=== PATIENT | male | born 1935 | race African-American/Black ===

== ENCOUNTER 2019-01-21 17:08 | Inpatient (IN) | payer MEDICARE ==
[~2019-01-21] VITALS: Ht 185.4 cm; Wt 89.1 kg
[2019-01-21 17:48] LABS: BASOPHILS % 1.1 % (0.0-2.0); EOSINOPHILS % 3.7 % (0.0-5.0); HEMATOCRIT. 40.4 % (42.0-52.0); HEMOGLOBIN. 13.4 g/dL (14.0-18.0); LYMPHOCYTES % 35.7 % (20.0-50.0); MEAN CORPUSCULAR HEMOGLOBIN 31.5 pg (28.0-32.0); MONOCYTES % 9.8 % (2.0-8.0); NEUTROPHILS % 49.7 % (40.0-76.0); PLATELET 220 x1000/uL (130-400); RED BLOOD CELL COUNT 4.25 mill/uL (4.7-6.1); RED CELL DISTRIBUTION WIDTH 13.8 % (11.6-14.6)
[2019-01-21 17:52] LABS: CHLORIDE 108 mEq/L (98-107)
[2019-01-21] MEDS ORDERED: AMLODIPINE 2.5MG TABLET PO ONE (19:00)
[2019-01-21 20:19] LABS: CLARITY URINE CLOUDY (CLEAR); COLOR URINE YELLOW (YELLOW); KETONES URINE NEGATIVE (NEGATIVE); LEUKOCYTE ESTERASE URINE 3+ (NEGATIVE); NITRITE URINE POSITIVE (NEGATIVE); OCCULT BLOOD URINE TRACE (NEGATIVE); PH URINE 7.5 (4.5-8.0); PROTEIN URINE 1+ (NEGATIVE); SPECIFIC GRAVITY URINE 1.023 (1.005-1.030)
[2019-01-21 21:09] VITALS: BP 191/96
[2019-01-21 21:15] VITALS: BP 191/96
[2019-01-21] MEDS ORDERED: CLONIDINE 0.1MG TABLET PO PRN (22:45)
[2019-01-21] MEDS ORDERED: ACETAMINOPHEN 650MG/20.3ML UDC PO PRN (22:45)
[2019-01-21] MEDS: BENAZEPRIL 10MG TABLET PO SCH (23:57)
[2019-01-22] VITALS: BP 171/80
[2019-01-22 04:00] VITALS: BP 151/79
[2019-01-22 08:30] VITALS: BP 192/93
[2019-01-22] MEDS ORDERED: ENOXAPARIN 40MG/0.4ML SYR SUBCUT SCH (09:00)
[2019-01-22] MEDS: BENAZEPRIL 10MG TABLET PO SCH (10:15)
[2019-01-22 10:38] LABS: T4 FREE 0.98 ng/dL (0.76-1.46)
[2019-01-22 12:06] VITALS: BP 162/75
[2019-01-22 15:23] VITALS: BP 170/87
[2019-01-22 16:18] LABS: CREATINE KINASE MB FRACTION 1.6 ng/mL (0.5-3.6)
[2019-01-22 19:47] LABS: BASOPHILS % 0.6 % (0.0-2.0); EOSINOPHILS % 2.3 % (0.0-5.0); HEMATOCRIT. 41.7 % (42.0-52.0); LYMPHOCYTES % 21.2 % (20.0-50.0); MEAN CORPUSCULAR HEMOGLOBIN 31.8 pg (28.0-32.0); MEAN PLATELET VOLUME 8.5 fl (7.4-10.4); MONOCYTES % 8.1 % (2.0-8.0); NEUTROPHILS % 67.8 % (40.0-76.0); PLATELET 219 x1000/uL (130-400); RED BLOOD CELL COUNT 4.38 mill/uL (4.7-6.1); RED CELL DISTRIBUTION WIDTH 13.5 % (11.6-14.6)
[2019-01-22 20:00] VITALS: BP_SYST 116; BP_SYST 156; BP_DIAS 69; BP_DIAS 83
[2019-01-22] MEDS ORDERED: CEFTRIAXONE 1 G PREMIX 50 ML IV SCH (20:00)
[2019-01-22 20:05] LABS: CHLORIDE 103 mEq/L (98-107)
[2019-01-22] MEDS: AMLODIPINE 10MG TABLET PO SCH (21:09)
[2019-01-22] MEDS: HYDRALAZINE HCL 50MG TABLET PO SCH (21:18)
[2019-01-23] VITALS (7 sets, daily range): BP systolic 133–166; BP diastolic 66–85
[2019-01-23 00:09] LABS: CREATINE KINASE MB FRACTION 1.8 ng/mL (0.5-3.6)
[2019-01-23 04:03] LABS: CLARITY URINE CLOUDY (CLEAR); COLOR URINE YELLOW (YELLOW); KETONES URINE NEGATIVE (NEGATIVE); LEUKOCYTE ESTERASE URINE 3+ (NEGATIVE); NITRITE URINE POSITIVE (NEGATIVE); OCCULT BLOOD URINE 3+ (NEGATIVE); PH URINE 7.5 (4.5-8.0); PROTEIN URINE 1+ (NEGATIVE); SPECIFIC GRAVITY URINE 1.015 (1.005-1.030)
[2019-01-23] MEDS ORDERED: AMLO10TA80 PO (06:33)
[2019-01-23] MEDS ORDERED: HYDR-4135 PO (06:33)
[2019-01-23] MEDS ORDERED: LEVO500T2 MT (06:34)
[2019-01-23] MEDS ORDERED: ATOR10TA MT (06:37)
[2019-01-23] MEDS: HYDRALAZINE HCL 50MG TABLET PO SCH ×2 (06:56→13:41)
[2019-01-23 08:06] LABS: CREATINE KINASE MB FRACTION 1.6 ng/mL (0.5-3.6)
[2019-01-23] MEDS: AMLODIPINE 10MG TABLET PO SCH (08:57)
[2019-01-23] MEDS: BENAZEPRIL 10MG TABLET PO SCH (08:58)
[2019-01-23 11:29] LABS: BASOPHILS % 0.8 % (0.0-2.0); EOSINOPHILS % 1.9 % (0.0-5.0); HEMATOCRIT. 42.6 % (42.0-52.0); HEMOGLOBIN. 14.2 g/dL (14.0-18.0); LYMPHOCYTES % 17.8 % (20.0-50.0); MEAN CORPUSCULAR HEMOGLOBIN 31.8 pg (28.0-32.0); MEAN CORPUSCULAR VOLUME 95.3 fL (80.0-94.0); MEAN PLATELET VOLUME 8.1 fl (7.4-10.4); MONOCYTES % 7.3 % (2.0-8.0); NEUTROPHILS % 72.2 % (40.0-76.0); PLATELET 204 x1000/uL (130-400); RED BLOOD CELL COUNT 4.47 mill/uL (4.7-6.1); RED CELL DISTRIBUTION WIDTH 13.7 % (11.6-14.6)
[2019-01-23 11:34] LABS: PROTHROMBIN TIME 10.2 sec (9.6-11.0)
[2019-01-23 12:14] LABS: CHLORIDE 102 mEq/L (98-107)
[2019-01-23] MEDS ORDERED: ATORVASTATIN CALCIUM 10MG TABLET PO SCH (21:00)
== END 2019-01-23 18:15 | disposition home or self-care (01) | DRG 690 ==
LOC: ER 17:08 → 5WST 19:38 → ENRESERV 19:56
PROVIDERS: ADMIT Family Medicine; ATTEND Family Medicine
DX: N39.0 Urinary tract infection, site not specified (principal); I67.82 Cerebral ischemia; I10 Essential (primary) hypertension; B96.89 Other specified bacterial agents as the cause of diseases classified elsewhere; N21.0 Calculus in bladder; E11.649 Type 2 diabetes mellitus with hypoglycemia without coma; N40.0 Benign prostatic hyperplasia without lower urinary tract symptoms; E78.5 Hyperlipidemia, unspecified; G31.9 Degenerative disease of nervous system, unspecified; Z87.440 Personal history of urinary (tract) infections; Z91.19 Patient's noncompliance with other medical treatment and regimen
CPT/HCPCS: 36415; 71045; 76770; 80061; 81003; 82550; 82553; 83036; 83880; 84439; 84443; 84484; 85379; 87077; 87186; 93005; 93306; 99285; J0696; J1650

== ENCOUNTER 2019-02-27 12:23 | Emergency (ER) | payer MEDICARE ==
[~2019-02-27] VITALS: Ht 185.4 cm; Wt 86.0 kg
[~2019-02-27 12:23] MED LIST: AMLO10TA80 PO; ATOR10TA MT; HYDR-4135 PO; LEVO500T2 MT
[2019-02-27 14:28] VITALS: BP 130/66
== END 2019-02-27 14:30 | disposition home or self-care (01) ==
LOC: ER 12:23
DX: E11.621 Type 2 diabetes mellitus with foot ulcer (principal); L97.529 Non-pressure chronic ulcer of other part of left foot with unspecified severity; L97.519 Non-pressure chronic ulcer of other part of right foot with unspecified severity; L03.116 Cellulitis of left lower limb; L03.115 Cellulitis of right lower limb; I10 Essential (primary) hypertension
CPT/HCPCS: 73630; 82962; 99283

== ENCOUNTER 2020-08-20 12:40 | Inpatient (IN) | payer MEDICARE, MEDICAID ==
[~2020-08-20] VITALS: Ht 185.4 cm; Wt 82.6 kg
[2020-08-20] MEDS ORDERED: SODIUM CHLORIDE 0.9% 1,000 ML IV ONE (13:45)
[2020-08-20] MEDS ORDERED: CLONIDINE 0.2MG TABLET PO ONE (13:45)
[2020-08-20 14:12] LABS: BASOPHILS % 0.6 % (0.0-2.0); HEMATOCRIT. 42.2 % (42.0-52.0); LYMPHOCYTES % 24.1 % (20.0-50.0); MEAN CORPUSCULAR HEMOGLOBIN 30.6 pg (28.0-32.0); MEAN CORPUSCULAR VOLUME 92.2 fL (80.0-94.0); MEAN PLATELET VOLUME 8.5 fl (7.4-10.4); NEUTROPHILS % 67.3 % (40.0-76.0); PLATELET 166 x1000/uL (130-400); RED BLOOD CELL COUNT 4.58 mill/uL (4.7-6.1); RED CELL DISTRIBUTION WIDTH 13.6 % (11.6-14.6)
[2020-08-20 14:18] LABS: CHLORIDE 100 mEq/L (98-107)
[2020-08-20 14:19] LABS: CLARITY URINE CLOUDY (CLEAR); COLOR URINE ORANGE (YELLOW); KETONES URINE 1+ (NEGATIVE); LEUKOCYTE ESTERASE URINE 2+ (NEGATIVE); NITRITE URINE NEGATIVE (NEGATIVE); OCCULT BLOOD URINE 3+ (NEGATIVE); PROTEIN URINE 3+ (NEGATIVE); SPECIFIC GRAVITY URINE 1.033 (1.005-1.030)
[2020-08-20 15:23] LABS: PARTIAL THROMBOPLASTIN TIME 31.6 sec (23.4-31.0); PROTHROMBIN TIME 10.7 sec (9.6-11.0)
[2020-08-20] MEDS ORDERED: CEFTRIAXONE 1 G PREMIX 50 ML IV ONE (18:15)
[2020-08-20] MEDS ORDERED: ASPIRIN 81MG TABLET PO ONE (18:15)
[2020-08-20] MEDS ORDERED: DEXTROSE 50% WATER 50ML SYRINGE IV PRN (19:15)
[2020-08-20] MEDS ORDERED: NA PHOS,M-B/NA PHOS,DI-BA ENEMA 118ML PR PRN (19:15)
[2020-08-20] MEDS ORDERED: ONDANSETRON HCL 4MG/2ML INJ IV PRN (19:15)
[2020-08-20] MEDS ORDERED: DOCUSATE SODIUM 100MG CAPSULE PO PRN (19:15)
[2020-08-20] MEDS ORDERED: LORAZEPAM 0.5MG TABLET PO PRN (19:15)
[2020-08-20] MEDS ORDERED: ACETAMINOPHEN 650MG SUPP PR PRN (19:15)
[2020-08-20] MEDS ORDERED: GUAIFENESIN 200MG/10ML SUGAR FREE UDC PO PRN (19:15)
[2020-08-20] MEDS ORDERED: IPRATROPIUM/ALBUTEROL 0.5-3(2.5)MG/3ML NEB NEB PRN (19:15)
[2020-08-20] MEDS ORDERED: HYDROCODONE/ACETAMINOPHEN 5/325MG TABLET PO PRN (19:15)
[2020-08-20] MEDS ORDERED: MAGNESIUM/ALUMINUM HYDROXIDE/SIMETHICONE 30ML UDC PO PRN (19:15)
[2020-08-20] MEDS ORDERED: CLONIDINE 0.1MG TABLET PO PRN (19:15)
[2020-08-20] MEDS ORDERED: DIPHENHYDRAMINE 50MG/ML VIAL IV PRN (19:15)
[2020-08-20] MEDS: PANTOPRAZOLE SODIUM 40 MG/VIAL IV SCH (19:30)
[2020-08-20] MEDS: SODIUM CHLORIDE 0.9% 1,000 ML IV SCH (19:30)
[2020-08-20] MEDS ORDERED: LEVOFLOXACIN 500MG PREMIX 100 ML IV SCH (19:30)
[2020-08-20] MEDS: INSULIN LISPRO 100 UNITS/ML SUBCUT SCH (21:00)
[2020-08-20] MEDS: BLOOD SUGAR DIAGNOSTIC STRIP TEST SCH (21:28)
[2020-08-21] VITALS (7 sets, daily range): BP systolic 94–155; BP diastolic 48–75
[2020-08-21] LABS: CREATINE KINASE MB FRACTION 2.1 ng/mL (0.5-3.6)
[2020-08-21] MEDS: INSULIN LISPRO 100 UNITS/ML SUBCUT SCH ×4 (06:10→20:19)
[2020-08-21] MEDS: BLOOD SUGAR DIAGNOSTIC STRIP TEST SCH ×4 (06:11→21:00)
[2020-08-21] MEDS: HYDRALAZINE HCL 50MG TABLET PO SCH ×2 (06:11→14:52)
[2020-08-21 06:54] LABS: BASOPHILS % 0.3 % (0.0-2.0); HEMATOCRIT. 37.4 % (42.0-52.0); HEMOGLOBIN. 12.3 g/dL (14.0-18.0); LYMPHOCYTES % 17.6 % (20.0-50.0); MEAN PLATELET VOLUME 9.3 fl (7.4-10.4); MONOCYTES % 6.9 % (2.0-8.0); NEUTROPHILS % 75.2 % (40.0-76.0); PLATELET 157 x1000/uL (130-400); RED BLOOD CELL COUNT 3.98 mill/uL (4.7-6.1)
[2020-08-21 06:56] LABS: CHLORIDE 105 mEq/L (98-107)
[2020-08-21 07:02] LABS: PROSTRATE SPECIFIC AG TOTAL 28.3 ng/mL (0.0-4.0)
[2020-08-21 07:10] LABS: LDL CHOLESTEROL 131 mg/dL (5-100)
[2020-08-21 07:11] LABS: HDL CHOLESTEROL 43 mg/dL (40-59)
[2020-08-21 07:14] LABS: CREATINE KINASE 198 IU/L (39-308)
[2020-08-21 07:15] LABS: T4 FREE 1.32 ng/dL (0.76-1.46)
[2020-08-21 07:18] LABS: TOTAL IRON BINDING CAPACITY 192 ug/dL (250-450)
[2020-08-21] MEDS ORDERED: PNEUMOCOCCAL 23-VAL P-SAC VAC 0.5 ML IM ONE (08:00)
[2020-08-21] MEDS ORDERED: INFLUENZA VACCINE 05/PF 0.5 ML VIAL IM ONE (10:00)
[2020-08-21] MEDS: PANTOPRAZOLE SODIUM 40 MG/VIAL IV SCH ×2 (10:17→20:18)
[2020-08-21] MEDS: SODIUM CHLORIDE 0.9% 1,000 ML IV SCH (10:44)
[2020-08-21] MEDS: ACETAMINOPHEN 325MG TABLET PO PRN (18:56)
[2020-08-21] MEDS: AMLODIPINE 5MG TABLET PO SCH (18:57)
[2020-08-21] MEDS: TAMSULOSIN HCL 0.4MG SR CAPSULE PO SCH (18:57)
[2020-08-21] MEDS: METFORMIN HCL 500MG TABLET PO SCH (18:57)
[2020-08-21] MEDS: LEVOFLOXACIN 500MG PREMIX 100 ML IV SCH (20:18)
[2020-08-21] MEDS: HYDRALAZINE HCL 25MG TABLET PO SCH (21:55)
[2020-08-22] VITALS: BP 151/60
[2020-08-22 04:00] VITALS: BP 168/72
[2020-08-22] MEDS: ACETAMINOPHEN 325MG TABLET PO PRN ×2 (05:23→20:28)
[2020-08-22] MEDS: HYDRALAZINE HCL 25MG TABLET PO SCH ×2 (05:23→13:03)
[2020-08-22] MEDS: BLOOD SUGAR DIAGNOSTIC STRIP TEST SCH ×4 (05:51→21:00)
[2020-08-22 08:00] VITALS: BP 126/55
[2020-08-22] MEDS: PANTOPRAZOLE SODIUM 40 MG/VIAL IV SCH ×2 (08:01→20:28)
[2020-08-22] MEDS: METFORMIN HCL 500MG TABLET PO SCH ×2 (08:01→18:30)
[2020-08-22] MEDS: AMLODIPINE 5MG TABLET PO SCH (08:01)
[2020-08-22] MEDS: TAMSULOSIN HCL 0.4MG SR CAPSULE PO SCH (08:01)
[2020-08-22] MEDS: INSULIN LISPRO 100 UNITS/ML SUBCUT SCH ×3 (08:02→18:31)
[2020-08-22] MEDS: SODIUM CHLORIDE 0.9% 1,000 ML IV SCH (08:38)
[2020-08-22 09:10] LABS: BASOPHILS % 0.3 % (0.0-2.0); HEMATOCRIT. 35.7 % (42.0-52.0); HEMOGLOBIN. 11.9 g/dL (14.0-18.0); LYMPHOCYTES % 14.1 % (20.0-50.0); MEAN CORPUSCULAR HEMOGLOBIN 31.1 pg (28.0-32.0); MEAN CORPUSCULAR VOLUME 93.2 fL (80.0-94.0); MEAN PLATELET VOLUME 9.2 fl (7.4-10.4); NEUTROPHILS % 79.6 % (40.0-76.0); PLATELET 173 x1000/uL (130-400); RED BLOOD CELL COUNT 3.83 mill/uL (4.7-6.1); RED CELL DISTRIBUTION WIDTH 12.8 % (11.6-14.6)
[2020-08-22 09:14] LABS: CHLORIDE 103 mEq/L (98-107)
[2020-08-22 09:33] LABS: FOLIC ACID (FOLATE) SERUM 19.5 ng/mL (>5.38)
[2020-08-22] MEDS ORDERED: POTASSIUM CHLORIDE 20MEQ TABLET SR PO SCH (10:45)
[2020-08-22 12:00] VITALS: BP 144/68
[2020-08-22] MEDS ORDERED: SODIUM CHLORIDE 0.9% 1,000 ML IV SCH (13:00)
[2020-08-22 16:00] VITALS: BP 167/64
[2020-08-22] MEDS: LEVOFLOXACIN 500MG PREMIX 100 ML IV SCH (18:30)
[2020-08-22 20:00] VITALS: BP 127/52
[2020-08-23] VITALS: BP 124/55
[2020-08-23] MEDS: INSULIN LISPRO 100 UNITS/ML SUBCUT SCH ×5 (00:04→21:04)
[2020-08-23] MEDS: SODIUM CHLORIDE 0.9% 1,000 ML IV SCH (00:04)
[2020-08-23] MEDS: HYDRALAZINE HCL 25MG TABLET PO SCH ×4 (00:05→21:03)
[2020-08-23 04:00] VITALS: BP 123/64
[2020-08-23] MEDS: ACETAMINOPHEN 325MG TABLET PO PRN (05:43)
[2020-08-23 05:44] LABS: CHLORIDE 106 mEq/L (98-107)
[2020-08-23 06:04] LABS: BASOPHILS % 0.3 % (0.0-2.0); HEMOGLOBIN. 11.8 g/dL (14.0-18.0); LYMPHOCYTES % 15.5 % (20.0-50.0); MEAN CORPUSCULAR HEMOGLOBIN 30.9 pg (28.0-32.0); MEAN PLATELET VOLUME 9.5 fl (7.4-10.4); MONOCYTES % 7.6 % (2.0-8.0); NEUTROPHILS % 76.6 % (40.0-76.0); PLATELET 185 x1000/uL (130-400); RED BLOOD CELL COUNT 3.83 mill/uL (4.7-6.1); RED CELL DISTRIBUTION WIDTH 12.7 % (11.6-14.6)
[2020-08-23] MEDS: BLOOD SUGAR DIAGNOSTIC STRIP TEST SCH ×4 (07:40→21:04)
[2020-08-23 08:00] VITALS: BP 109/58
[2020-08-23] MEDS: AMLODIPINE 5MG TABLET PO SCH (09:00)
[2020-08-23] MEDS: PANTOPRAZOLE SODIUM 40 MG/VIAL IV SCH ×2 (09:29→21:03)
[2020-08-23] MEDS: METFORMIN HCL 500MG TABLET PO SCH ×2 (09:30→17:41)
[2020-08-23] MEDS: TAMSULOSIN HCL 0.4MG SR CAPSULE PO SCH (09:30)
[2020-08-23] MEDS: DEXAMETHASONE 10 MG/ML VIAL IV SCH (11:36)
[2020-08-23] MEDS: ASPIRIN 81MG TABLET PO SCH (11:36)
[2020-08-23 12:11] VITALS: BP 132/63
[2020-08-23 13:27] LABS: BG CARBOXYHEMOGLOBIN 1.2 % (0.5-1.5); BG DEOXYHEMOGLOBIN 11.8 % (0.0-5.0); BG FRACTION INSPIRED OXYGEN 21; BG HCO3 ACT 23.8 mmol/L (22.0-26.0); BG METHEMOGLOBIN 0.1 % (0.0-1.5); BG OXYHEMOGLOBIN 86.9 % (94.0-97.0); BG PCO2 35.7 mmHg (35.0-45.0); BG PH 7.442 (7.350-7.450); BG PO2 51.8 mmHg (75.0-100.0); BG SAMPLE SITE RIGHT BRACHIAL; BG TOTAL HEMOGLOBIN 11.8 g/dL (12.0-18.0); BG VENT MODE ROOM AIR
[2020-08-23] MEDS ORDERED: FUROSEMIDE 40MG/4ML VIAL IVP NR (15:00)
[2020-08-23 16:00] VITALS: BP 126/72
[2020-08-23] MEDS: LEVOFLOXACIN 500MG PREMIX 100 ML IV SCH (18:30)
[2020-08-23] MEDS: ALBUTEROL 6.7GM HFA INHALER ORI SCH (18:38)
[2020-08-23 20:00] VITALS: BP 120/60
[2020-08-24] VITALS: BP 128/71
[2020-08-24 04:00] VITALS: BP 141/65
[2020-08-24] MEDS: HYDRALAZINE HCL 25MG TABLET PO SCH ×3 (06:16→22:40)
[2020-08-24] MEDS: ALBUTEROL 6.7GM HFA INHALER ORI SCH ×5 (06:16→23:02)
[2020-08-24 06:45] LABS: BASOPHILS % 0.2 % (0.0-2.0); HEMATOCRIT. 35.1 % (42.0-52.0); HEMOGLOBIN. 11.8 g/dL (14.0-18.0); LYMPHOCYTES % 11.3 % (20.0-50.0); MEAN CORPUSCULAR HEMOGLOBIN 31.4 pg (28.0-32.0); MEAN CORPUSCULAR VOLUME 93.5 fL (80.0-94.0); MEAN PLATELET VOLUME 8.9 fl (7.4-10.4); MONOCYTES % 7.5 % (2.0-8.0); PLATELET 195 x1000/uL (130-400); RED BLOOD CELL COUNT 3.76 mill/uL (4.7-6.1); RED CELL DISTRIBUTION WIDTH 12.8 % (11.6-14.6)
[2020-08-24 07:07] LABS: CHLORIDE 102 mEq/L (98-107)
[2020-08-24] MEDS: BLOOD SUGAR DIAGNOSTIC STRIP TEST SCH ×4 (07:33→20:29)
[2020-08-24] MEDS: INSULIN LISPRO 100 UNITS/ML SUBCUT SCH ×4 (07:54→20:29)
[2020-08-24] MEDS: METFORMIN HCL 500MG TABLET PO SCH ×2 (07:54→17:33)
[2020-08-24 08:00] VITALS: BP 130/93
[2020-08-24] MEDS: AMLODIPINE 5MG TABLET PO SCH (08:00)
[2020-08-24] MEDS: DEXAMETHASONE 10 MG/ML VIAL IV SCH (08:00)
[2020-08-24] MEDS: PANTOPRAZOLE SODIUM 40 MG/VIAL IV SCH ×2 (08:00→20:28)
[2020-08-24] MEDS: ASPIRIN 81MG TABLET PO SCH (08:00)
[2020-08-24] MEDS: TAMSULOSIN HCL 0.4MG SR CAPSULE PO SCH (08:00)
[2020-08-24 12:00] VITALS: BP 125/86
[2020-08-24] MEDS ORDERED: INSULIN GLARGINE UD 100 UNITS/ML SYR SUBCUT NR (14:30)
[2020-08-24 16:00] VITALS: BP 100/62
[2020-08-24 20:00] VITALS: BP 120/63
[2020-08-24] MEDS: LEVOFLOXACIN 500MG PREMIX 100 ML IV SCH (20:28)
[2020-08-24] MEDS: INSULIN GLARGINE UD 100 UNITS/ML SYR SUBCUT SCH (22:42)
[2020-08-25] VITALS: BP 120/61
[2020-08-25 04:00] VITALS: BP 148/81
[2020-08-25] MEDS: ALBUTEROL 6.7GM HFA INHALER ORI SCH ×4 (05:41→23:18)
[2020-08-25] MEDS: HYDRALAZINE HCL 25MG TABLET PO SCH ×3 (05:41→20:25)
[2020-08-25] MEDS: BLOOD SUGAR DIAGNOSTIC STRIP TEST SCH ×4 (06:58→21:00)
[2020-08-25] MEDS: METFORMIN HCL 500MG TABLET PO SCH ×2 (07:42→17:32)
[2020-08-25] MEDS: INSULIN LISPRO 100 UNITS/ML SUBCUT SCH ×4 (07:42→22:15)
[2020-08-25 08:00] VITALS: BP 128/72
[2020-08-25] MEDS: PANTOPRAZOLE SODIUM 40 MG/VIAL IV SCH ×2 (09:36→20:25)
[2020-08-25] MEDS: TAMSULOSIN HCL 0.4MG SR CAPSULE PO SCH (09:37)
[2020-08-25] MEDS: AMLODIPINE 5MG TABLET PO SCH (09:37)
[2020-08-25] MEDS: ASPIRIN 81MG TABLET PO SCH (09:37)
[2020-08-25] MEDS: DEXAMETHASONE 10 MG/ML VIAL IV SCH (09:37)
[2020-08-25] MEDS: INSULIN GLARGINE UD 100 UNITS/ML SYR SUBCUT SCH ×2 (09:38→22:15)
[2020-08-25 12:00] VITALS: BP 115/59
[2020-08-25 16:00] VITALS: BP 109/58
[2020-08-25 20:00] VITALS: BP 146/71
[2020-08-26] VITALS (7 sets, daily range): BP systolic 103–165; BP diastolic 55–81
[2020-08-26] MEDS: ALBUTEROL 6.7GM HFA INHALER ORI SCH ×3 (06:00→17:11)
[2020-08-26] MEDS: HYDRALAZINE HCL 25MG TABLET PO SCH ×2 (06:54→12:51)
[2020-08-26] MEDS: BLOOD SUGAR DIAGNOSTIC STRIP TEST SCH ×3 (07:05→17:10)
[2020-08-26] MEDS: TAMSULOSIN HCL 0.4MG SR CAPSULE PO SCH (08:43)
[2020-08-26] MEDS: AMLODIPINE 5MG TABLET PO SCH (08:43)
[2020-08-26] MEDS: DEXAMETHASONE 10 MG/ML VIAL IV SCH (08:43)
[2020-08-26] MEDS: PANTOPRAZOLE SODIUM 40 MG/VIAL IV SCH (08:43)
[2020-08-26] MEDS: METFORMIN HCL 500MG TABLET PO SCH ×2 (08:43→17:11)
[2020-08-26] MEDS: ASPIRIN 81MG TABLET PO SCH (08:43)
[2020-08-26] MEDS: INSULIN LISPRO 100 UNITS/ML SUBCUT SCH ×3 (08:45→17:13)
[2020-08-26] MEDS: INSULIN GLARGINE UD 100 UNITS/ML SYR SUBCUT SCH (08:46)
[2020-08-26] MEDS ORDERED: TAMS-11 MT (14:13)
[2020-08-26] MEDS ORDERED: ASPI-1406 MT (14:13)
[2020-08-26] MEDS ORDERED: HYDR-4135 MT (14:13)
[2020-08-26] MEDS ORDERED: METF-414 MT (14:13)
[2020-08-26] MEDS ORDERED: ALBU90AE INH (14:13)
[2020-08-26] MEDS ORDERED: FAMO-135 PO (14:13)
[2020-08-26] MEDS ORDERED: INSULIN GLARGINE UD 100 UNITS/ML SYR SUBCUT SCH (22:00)
[2020-08-27] MEDS ORDERED: DEXAMETHASONE 4MG/ML 1ML VIAL IV SCH (09:00)
== END 2020-08-26 20:45 | DRG 177 ==
LOC: ER 12:40 → MICUSO 18:06 → SUPCPDRO 19:47 → ENRESERV 22:46 → 8WST 22:50 → 7WST 23:52
PROVIDERS: ADMIT Internal Medicine; ATTEND Internal Medicine
DX: U07.1 COVID-19 (principal); J12.82 Pneumonia due to coronavirus disease 2019; N39.0 Urinary tract infection, site not specified; G93.40 Encephalopathy, unspecified; E87.1 Hypo-osmolality and hyponatremia; I67.82 Cerebral ischemia; J98.11 Atelectasis; D63.8 Anemia in other chronic diseases classified elsewhere; E11.65 Type 2 diabetes mellitus with hyperglycemia; N21.0 Calculus in bladder; R09.02 Hypoxemia; I10 Essential (primary) hypertension; B96.20 Unspecified Escherichia coli [E. coli] as the cause of diseases classified elsewhere; R32 Unspecified urinary incontinence; N40.1 Benign prostatic hyperplasia with lower urinary tract symptoms; Z60.2 Problems related to living alone; Z79.84 Long term (current) use of oral hypoglycemic drugs; Z79.899 Other long term (current) drug therapy; Z79.82 Long term (current) use of aspirin
CPT/HCPCS: 36415; 36600; 71045; 74176; 80048; 80053; 80061; 81003; 82270; 82375; 82550; 82553; 82607; 82728; 82746; 82805; 82962; 83036; 83540; 83550; 84145; 84153; 84439; 84443; 84484; 84550; 85025; 85044; 85379; 86141; 86850; 86900; 87077; 87186; 87426; 90686; 90732; 93005; 93970; 97116; 97162; 99285; C9113; J0696; J1100; J1815; J1940; J1956; J7030; U0003; G0103

== ENCOUNTER 2024-04-02 15:19 | Emergency (ER) | payer OTHER, MEDICAID ==
[~2024-04-02] VITALS: Ht 182.9 cm; Wt 73.0 kg
[~2024-04-02 15:19] MED LIST changes: +ALBU90AE INH; +ASPI-1406 MT; +FAMO-135 PO; -HYDR-4135 PO; +HYDR50TA39 PO; +HYDR50TA40 MT; -LEVO500T2 MT; +METF-414 MT; +TAMS-11 MT
[2024-04-02 15:21] VITALS: TEMP 98.8; O2SAT 95
[2024-04-02 15:27] VITALS: BP 143/66; PULSE 70; RESP 20; O2SAT 95
[2024-04-02] MEDS: SODIUM CHLORIDE 0.9% 1,000 ML IV ONE (15:40)
[2024-04-02 16:26] LABS: BASOPHILS % 0.7 % (0.0-2.0); HEMATOCRIT. 35.4 % (42.0-52.0); HEMOGLOBIN. 11.7 g/dL (14.0-18.0); LYMPHOCYTES % 28.7 % (20.0-50.0); MEAN CORPUSCULAR HEMOGLOBIN 32.3 pg (28.0-32.0); MEAN CORPUSCULAR VOLUME 97.8 fL (80.0-94.0); MEAN PLATELET VOLUME 8.2 fl (7.4-10.4); MONOCYTES % 8.3 % (2.0-8.0); NEUTROPHILS % 60.3 % (40.0-76.0); PLATELET 164 x1000/uL (130-400); RED BLOOD CELL COUNT 3.62 mill/uL (4.7-6.1); RED CELL DISTRIBUTION WIDTH 13.7 % (11.6-14.6); WHITE BLOOD COUNT 4.2 x1000/uL (4.5-11.0)
[2024-04-02 16:33] LABS: CARBON DIOXIDE 28 mEq/L (21-32); CHLORIDE 110 mEq/L (98-107); POTASSIUM 3.7 mEq/L (3.5-5.1); SODIUM 144 mEq/L (136-145)
[2024-04-02 16:37] LABS: PROTHROMBIN TIME 11.3 sec (9.6-11.0)
[2024-04-02 16:39] LABS: CREATININE 1.6 mg/dL (0.6-1.3); UREA NITROGEN BLOOD 22 mg/dL (9-23)
[2024-04-02 16:41] LABS: TROPONIN I HIGH SENSITIVITY 30 ng/L (3.0-53)
[2024-04-02 16:42] LABS: ETHANOL BLOOD < 10 mg/dL (<10); GLUCOSE 125 mg/dL (70-105)
[2024-04-02 17:56] LABS: TROPONIN I HIGH SENSITIVITY 33 ng/L (3.0-53)
== END 2024-04-02 20:06 | disposition home or self-care (01) ==
LOC: ER 15:19
DX: R55 Syncope and collapse (principal); E11.9 Type 2 diabetes mellitus without complications; I10 Essential (primary) hypertension; Z79.899 Other long term (current) drug therapy
CPT/HCPCS: 80048; 80320; 83880; 85025; 85610; 84484; 36415; 71045; 93005; 96360; 99285; J7030; G0480

== ENCOUNTER 2024-06-02 13:43 | Emergency (ER) | payer OTHER, MEDICAID ==
[~2024-06-02] VITALS: Ht 188 cm; Wt 82.0 kg
[2024-06-02 13:53] VITALS: O2SAT 100
[2024-06-02 14:31] LABS: BASOPHILS % 0.7 % (0.0-2.0); EOSINOPHILS % 2.1 % (0.0-5.0); HEMATOCRIT. 37.6 % (42.0-52.0); HEMOGLOBIN. 12.1 g/dL (14.0-18.0); LYMPHOCYTES % 31.3 % (20.0-50.0); MEAN CORPUSCULAR HEMOGLOBIN 31.6 pg (28.0-32.0); MEAN CORPUSCULAR HGB CONC 32.1 g/dL (31.0-37.0); MEAN CORPUSCULAR VOLUME 98.6 fL (80.0-94.0); MEAN PLATELET VOLUME 8.5 fl (7.4-10.4); NEUTROPHILS % 58.9 % (40.0-76.0); PLATELET 163 x1000/uL (130-400); RED BLOOD CELL COUNT 3.82 mill/uL (4.7-6.1); RED CELL DISTRIBUTION WIDTH 13.5 % (11.6-14.6); WHITE BLOOD COUNT 5.9 x1000/uL (4.5-11.0)
[2024-06-02 14:36] LABS: D-DIMER 0.31 mg/L FEU (<0.50); PROTHROMBIN TIME 11.4 sec (9.6-11.0)
[2024-06-02 14:38] LABS: CHLORIDE 105 mEq/L (98-107); POTASSIUM 3.9 mEq/L (3.5-5.1); SODIUM 141 mEq/L (136-145)
[2024-06-02 14:39] LABS: CALCIUM 9.6 mg/dL (8.7-10.4); CARBON DIOXIDE 29 mEq/L (21-32)
[2024-06-02 14:44] LABS: CREATININE 1.5 mg/dL (0.6-1.3); GLUCOSE 170 mg/dL (70-105); TROPONIN I HIGH SENSITIVITY 32 ng/L (3.0-53); UREA NITROGEN BLOOD 21 mg/dL (9-23)
[2024-06-02 16:30] VITALS: BP 147/62; PULSE 60; RESP 13; TEMP 36.83628; O2SAT 100
[2024-06-02] MEDS ORDERED: IOHEXOL-350 100 ML BOTTLE ONE ×2 (16:59→23:22)
== END 2024-06-02 17:30 | disposition home or self-care (01) ==
LOC: ER 13:43
DX: R55 Syncope and collapse (principal); R10.9 Unspecified abdominal pain; E11.9 Type 2 diabetes mellitus without complications; I10 Essential (primary) hypertension; Z79.82 Long term (current) use of aspirin; Z79.899 Other long term (current) drug therapy
CPT/HCPCS: 99285; 74174; 71275; 71045; 80048; 83880; 85025; 85379; 85610; 84484; 36415; 93005; Q9967